=== PATIENT | male | born 1950 | race Caucasian/White ===

== ENCOUNTER 2024-03-26 13:30 | Emergency (ER) | payer MEDICARE ==
--- NOTE | 2024-03-26 13:38 | ED ---
Upper Extremity HPI - General Chief Complaint: Extremity Injury, Upper Stated Complaint: L hand laceration Time Seen by Provider: 03/26/24 13:38 Source: patient, RN notes reviewed Mode of arrival: ambulatory Limitations: no limitations - History of Present Illness Initial Comments: This is a 73-year-old male presents emergency department chief complaint of a left upper extremity injury. [place] injuring his left forearm. He denies hitting his head or loss conscious at the time of the fall. Patient has a history of a CVA with left-sided neurological deficits therefore sensation is diminished of the left side and unable to assess for range of motion due to this. Patient states that he is up-to-date on tetanus vaccines. No other acute complaints at this time. - Related Data Previous Rx's Medication Instructions Recorded Cephalexin [Keflex] 500 mg PO Q6HR #40 cap 03/26/24 Levofloxacin [Levaquin] 500 mg PO DAILY #10 tab 03/26/24 Allergies Allergy/AdvReac Type Severity Reaction Status Date / Time Penicillins AdvReac Unknown Verified 03/26/24 13:36 Review of Systems ROS Statement: Those systems with pertinent positive or pertinent negative responses have been documented in the HPI. ROS Other: All systems not noted in ROS Statement are negative. Past Medical History Additional Past Medical History / Comment(s): Stroke w/ L sided deficits Past Surgical History: No Surgical Hx Reported Smoking Status: Former smoker Past Alcohol Use History: None Reported Past Drug Use History: None Reported General Exam Limitations: no limitations General appearance: alert, in no apparent distress Head exam: Present: atraumatic, normocephalic, normal inspection Eye exam: Present: normal appearance, PERRL, EOMI. Absent: scleral icterus, conjunctival injection, periorbital swelling ENT exam: Present: normal exam, mucous membranes moist Neck exam: Present: normal inspection. Absent: tenderness, meningismus, lymphadenopathy Respiratory exam: Present: normal lung sounds bilaterally. Absent: respiratory distress, wheezes, rales, rhonchi, stridor Cardiovascular Exam: Present: regular rate, normal rhythm, normal heart sounds. Absent: systolic murmur, diastolic murmur, rubs, gallop, clicks GI/Abdominal exam: Present: soft, normal bowel sounds. Absent: distended, tenderness, guarding, rebound, rigid Left Forearm Wrist exam: Present: tenderness, swelling, laceration (7 cm lac of the lateral forearm, additional 2 cm lac of distal forearm) Hand Wrist exam: Present: laceration (abrasion over the dorsal hand roughly 1 cm) Neuro motor exam: Present: wrist extension intact Vascular: Present: normal capillary refill. Absent: vascular compromise Back exam: Present: normal inspection Neurological exam: Present: other (left sided motor deficits from previous CVA) Skin exam: Present: warm, dry, intact, normal color. Absent: rash Course Vital Signs 03/26/24 03/26/24 13:31 15:25 Temperature 97.3 F L 98 F Pulse Rate 74 62 Respiratory 20 18 Rate Blood Pressure 166/104 143/96 O2 Sat by Pulse 100 98 Oximetry Procedures - Laceration Laceration #1 Consent Obtained: verbal consent Indication: laceration Site: upper extremity Size (cm): 7 Description: linear Depth: simple, single layer Anesthetic Used: lidocaine 1% Anesthesia Technique: local infiltration Amount (mls): 4 Pre-repair: wound explored, irrigated extensively, deep structures intact, extreme cleansing Type of Sutures: nylon Size of Sutures: 4-0 Number of Sutures: 12 Technique: simple, interrupted Patient Tolerated Procedure: well, no complications Laceration #2 Consent Obtained: verbal consent Indication: laceration Site: upper extremity Size (cm): 2 Description: linear Depth: simple, single layer Anesthetic Used: lidocaine 1% Anesthesia Technique: local infiltration Amount (mls): 1 Pre-repair: wound explored, extreme cleansing Type of Sutures: nylon Size of Sutures: 4-0 Number of Sutures: 4 Technique: simple, interrupted Patient Tolerated Procedure: well, no complications Medical Decision Making - Medical Decision Making Was pt. sent in by a medical professional or institution (, PA, WELFARE DIRECTOR, urgent care, hospital, or long-term...) When possible be specific @ -No Did you speak to anyone other than the patient for history (EMS, parent, family, police, friend...)? What history was obtained from this source @ -No Did you review nursing and triage notes (agree or disagree)? Why? @ -I reviewed and agree with nursing and triage notes Were old charts reviewed (outside hosp., previous admission, EMS record, old EKG, old radiological studies, urgent care reports/EKG's, long-term records)? Report findings @ -No old charts were reviewed Differential Diagnosis (chest pain, altered mental status, abdominal pain women, abdominal pain men, vaginal bleeding, weakness, fever, dyspnea, syncope, headache, dizziness, GI bleed, back pain, seizure, CVA, palpatations, mental health, musculoskeletal)? @ -Laceration, skin abrasion, fracture, this list is not all inclusive EKG interpreted by me (3pts min.). @ -none X-rays interpreted by me (1pt min.). @ -xray of the left hand and forearm reveals osteo bonilla limiting evaluation, no displaced fracture seen, soft tissue laceration along the dorsal aspect of the proximal forearm. CT interpreted by me (1pt min.). @ -None done U/S interpreted by me (1pt. min.). @ -None done What testing was considered but not performed or refused? (CT, X-rays, U/S, labs)? Why? @ -Imaging of the head was considered but deferred at this time due to patient denying hitting his head or loss of consciousness at the time of the fall. What meds were considered but not given or refused? Why? @ -None Did you discuss the management of the patient with other professionals (professionals i.e. , PA, WELFARE DIRECTOR, lab, RT, psych nurse, school social worker, health benefits specialist, teacher, fire management officer, community case manager)? Give summary @ -No Was smoking cessation discussed for >3mins.? @ -No Was critical care preformed (if so, how long)? @ -No Were there social determinants of health that impacted care today? How? (Homelessness, low income, unemployed, alcoholism, drug addiction, transportation, low edu. Level, literacy, decrease access to med. care, fci, rehab)? @ -No Was there de-escalation of care discussed even if they declined (Discuss DNR or withdrawal of care, Hospice)? DNR status @ -No What co-morbidities impacted this encounter? (DM, HTN, Smoking, COPD, CAD, Cancer, CVA, ARF, Chemo, Hep., AIDS, mental health diagnosis, sleep apnea, morbid obesity)? @ -None Was patient admitted / discharged? Hospital course, mention meds given and route, prescriptions, significant lab abnormalities, going to OR and other pert inent info. @ -Discharge. 73-year-old male with a laceration to the left forearm. Due to patient's diminished sensation of the left arm from a previous history of CVA he will be sent for imaging of the left forearm and hand to evaluate for potential fracture. Patient is up-to-date on tetanus vaccine. Area was thoroughly irrigated with sterile water and Betadine. 12 simple interrupted sutures were placed with 4-0 nylon over the 7 cm lac and all 2 cm laceration 4 simple interrupted sutures were placed with 4-0 nylon. Discussed that patient should return to the emergency department or to his primary care provider in the next 10 to 12 days for suture removal. Patient will also be provided with prescription for 2 antibiotics to cover for potential infection due to the mechanism of [place]. All questions answered at bedside and strict return parameters discussed with the patient who is verbalized understanding. Case discussed with Dr. Fitzpatrick Undiagnosed new problem with uncertain prognosis? @ -No Drug Therapy requiring intensive monitoring for toxicity (Heparin, Nitro, Insulin, Cardizem)? @ -No Were any procedures done? @ -Wound irrigation, sutures Diagnosis/symptom? @ -Laceration Acute, or Chronic, or Acute on Chronic? @ -Acute Uncomplicated (without systemic symptoms) or Complicated (systemic symptoms)? @ -Uncomplicated Side effects of treatment? @ -No Exacerbation, Progression, or Severe Exacerbation? @ -No Poses a threat to life or bodily function? How? (Chest pain, [place], SD, pneumonia, PE, COPD, DKA, ARF, appy, cholecystitis, CVA, Diverticulitis, Homicidal, Suicidal, threat to staff... and all critical care pts) @ -No Disposition Clinical Impression: Laceration Disposition: HOME SELF-CARE Condition: Good Instructions (If sedation given, give patient instructions): Care For Your Stitches (DC) Additional Instructions: Return to the emergency department if your symptoms worsen or not improved. Continue full course of both antibiotics as prescribed. Return to the emergency department if your primary care provider in the next 10 days for suture removal. Prescriptions: Cephalexin [Keflex] 500 mg PO Q6HR #40 cap Levofloxacin [Levaquin] 500 mg PO DAILY #10 tab Is patient prescribed a controlled substance at d/c from ED?: No Referrals: Rubio Fan MD [REFERRING] - 1-2 days Time of Disposition: 15:14
[2024-03-26] MEDS: LIDOCAINE 1% INJ 10MG/ML (20 ML MDV) SQ ONE (13:51)
--- NOTE | 2024-03-26 15:02 | XR ---
EXAMINATION TYPE: XR forearm 2 views LT, XR hand limited 2 views LT DATE OF EXAM: 03/26/2024 COMPARISON: NONE HISTORY: 73-year-old male laceration to proximal forearm after falling. Limited range of motion due t o previous stroke. Fall, injury, pain. TECHNIQUE: 2 views FINDINGS: Forearm: There is a laceration along the dorsal aspect of the forearm. On spur. No elbow joint effusion seen. Osteopenia. No acute fracture identified. 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 There are joint subluxations at the sec ond, third, and fifth MCP joints. No acute fracture or dislocation seen. Generalized soft tissue swel ling. IMPRESSION (forearm and hand): 1. Osteopenia limiting evaluation. No displaced fracture seen. 2. Soft tissue laceration along the dorsal aspect of the proximal forearm. 3. 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
[2024-03-26 15:27] VITALS: BP 143/96; PULSE 62; RESP 18; TEMP 98
== END 2024-03-26 15:27 | disposition home or self-care (01) ==
LOC: EC 13:30
DX: S51.812A Laceration without foreign body of left forearm, initial encounter (principal); Z86.73 Personal history of transient ischemic attack (TIA), and cerebral infarction without residual deficits; Z88.0 Allergy status to penicillin; Z87.891 Personal history of nicotine dependence; W01.0XXA Fall on same level from slipping, tripping and stumbling without subsequent striking against object, initial encounter; Y92.510 Bank as the place of occurrence of the external cause
CPT/HCPCS: 73090; 73120; 12004; 99283; J2001